=== PATIENT | female | born 1950 | race Caucasian/White ===

== ENCOUNTER 2021-04-04 11:37 | Inpatient (IN) ==
[2021-04-04] MEDS ORDERED: Acetaminophen 325 MG TABLET PO PRN (17:35)
[2021-04-04] MEDS ORDERED: *HR* Dextrose 50 % in Water (Syg) 50 ML SYRINGE IVP PRN (17:37)
[2021-04-04] MEDS ORDERED: D5% in Water 1,000 ML IVC PRN (17:37)
[2021-04-04] MEDS ORDERED: Dextrose Gel 15 GM/37.5 ML TUBE PO PRN ×2 (17:37)
[2021-04-04] MEDS: Ondansetron ODT 4 MG TAB.RAPDIS SL PRN (17:56)
[2021-04-04] MEDS: *HR* Metformin 500 MG TABLET PO SCH (20:10)
[2021-04-04] MEDS: Gabapentin 300 MG CAPSULE PO SCH (20:10)
[2021-04-04] MEDS: QUEtiapine Fumarate 25 MG TABLET PO SCH (20:11)
[2021-04-04] MEDS: Insulin DETEMIR 100 UNIT/ML X5UNITS SUBQ SCH (20:11)
[2021-04-04] MEDS ORDERED: Insulin LISPRO 300 UNITS/3 ML VIAL SUBQ SCH (21:00)
[2021-04-05] MEDS: *HR* Enoxaparin 40 MG/0.4 ML SYRINGE SQ SCH (05:50)
[2021-04-05 06:41] LABS: Basophils # 0.1 K/mcL (0.0-0.2); Basophils % 0.7 %; Eosinophils # 0.2 K/mcL (0.0-0.6); Eosinophils % 1.6 %; Hematocrit 52.1 % (35.3-44.9); Hemoglobin 16.9 g/dL (11.5-15.4); Immature Granulocytes % 0.5 % (0-4); Lymphocytes # 2.6 K/mcL (0.6-4.6); Lymphocytes % 24.1 %; Mean Corpuscular HGB Conc 32.4 g/dL (31.6-35.5); Mean Corpuscular Hemoglobin 29.8 pg (28.0-33.3); Mean Corpuscular Volume 91.7 fL (83.0-100.0); Mean Platelet Volume 11.7 fL (9.4-12.4); Monocytes # 1.9 K/mcL (0.0-1.3); Monocytes % 17.7 %; Neutrophils # 5.9 K/mcL (1.6-8.9); Platelet Count 249 K/mcL (140-400); Red Blood Count 5.68 M/mcL (3.82-4.97); Red Cell Distribution Width 14.1 % (11.5-14.5); Segmented Neutrophils % 55.4 %; White Blood Count 10.6 K/mcL (4.3-11.1)
[2021-04-05 07:05] LABS: BUN/Creatinine Ratio 16 (6-26); Blood Urea Nitrogen 17 mg/dL (8-23); Calcium 9.6 mg/dL (8.6-10.3); Carbon Dioxide 34 mEq/L (23-29); Chloride 97 mEq/L (98-107); Glucose 228 mg/dL (70-105); Osmolality,Calculated 297 (280-300); Potassium 3.7 mEq/L (3.5-5.1); Sodium 139 mEq/L (136-145); eGFR For African Americans > 60 (> 60); eGFR For Non-African Americans 52 (> 60)
[2021-04-05] MEDS: Gabapentin 300 MG CAPSULE PO SCH ×2 (10:30→20:27)
[2021-04-05] MEDS: PARoxetine 20 MG TABLET PO SCH (10:30)
[2021-04-05] MEDS: *HR* Metformin 500 MG TABLET PO SCH ×2 (10:30→20:28)
[2021-04-05] MEDS: atenoloL 50 MG TABLET PO SCH (10:30)
[2021-04-05] MEDS: lisinopriL 5 MG TABLET PO SCH (10:30)
[2021-04-05] MEDS: Aspirin Enteric Coated 81 MG Tablet PO SCH (10:30)
[2021-04-05] MEDS: Ondansetron ODT 4 MG TAB.RAPDIS SL PRN (13:22)
[2021-04-05] MEDS: Insulin LISPRO 300 UNITS/3 ML VIAL SUBQ SCH ×5 (13:23→20:43)
[2021-04-05] MEDS ORDERED: Dextrose Gel 15 GM/37.5 ML TUBE PO PRN ×2 (16:30)
[2021-04-05] MEDS ORDERED: *HR* Dextrose 50 % in Water (Syg) 50 ML SYRINGE IVP PRN (16:30)
[2021-04-05] MEDS ORDERED: D5% in Water 1,000 ML IVC PRN (16:30)
[2021-04-05] MEDS: QUEtiapine Fumarate 25 MG TABLET PO SCH (20:27)
[2021-04-05] MEDS: Insulin DETEMIR 100 UNIT/ML X5UNITS SUBQ SCH (20:43)
[2021-04-06] MEDS: *HR* Enoxaparin 40 MG/0.4 ML SYRINGE SQ SCH (06:44)
[2021-04-06] MEDS: *HR* Metformin 500 MG TABLET PO SCH ×2 (09:00→21:24)
[2021-04-06] MEDS: Gabapentin 300 MG CAPSULE PO SCH ×2 (09:00→21:24)
[2021-04-06] MEDS: lisinopriL 5 MG TABLET PO SCH (09:00)
[2021-04-06] MEDS: Aspirin Enteric Coated 81 MG Tablet PO SCH (09:00)
[2021-04-06] MEDS: atenoloL 50 MG TABLET PO SCH (09:00)
[2021-04-06] MEDS: PARoxetine 20 MG TABLET PO SCH (09:01)
[2021-04-06] MEDS: Insulin LISPRO 300 UNITS/3 ML VIAL SUBQ SCH ×4 (09:01→21:27)
[2021-04-06] MEDS: Ondansetron ODT 4 MG TAB.RAPDIS SL PRN (17:32)
[2021-04-06] MEDS: QUEtiapine Fumarate 25 MG TABLET PO SCH (21:24)
[2021-04-06] MEDS: Insulin DETEMIR 100 UNIT/ML X5UNITS SUBQ SCH (21:25)
[2021-04-07] MEDS: *HR* Enoxaparin 40 MG/0.4 ML SYRINGE SQ SCH (06:51)
[2021-04-07] MEDS: PARoxetine 20 MG TABLET PO SCH (09:03)
[2021-04-07] MEDS: Aspirin Enteric Coated 81 MG Tablet PO SCH (09:03)
[2021-04-07] MEDS: atenoloL 50 MG TABLET PO SCH (09:04)
[2021-04-07] MEDS: lisinopriL 5 MG TABLET PO SCH (09:04)
[2021-04-07] MEDS: *HR* Metformin 500 MG TABLET PO SCH ×2 (09:04→20:24)
[2021-04-07] MEDS: Gabapentin 300 MG CAPSULE PO SCH ×2 (09:05→20:23)
[2021-04-07] MEDS: Insulin LISPRO 300 UNITS/3 ML VIAL SUBQ SCH ×4 (09:05→20:26)
[2021-04-07] MEDS: QUEtiapine Fumarate 25 MG TABLET PO SCH (20:23)
[2021-04-07] MEDS: Insulin DETEMIR 100 UNIT/ML X5UNITS SUBQ SCH (20:25)
[2021-04-08] MEDS: *HR* Enoxaparin 40 MG/0.4 ML SYRINGE SQ SCH (06:42)
[2021-04-08 08:09] VITALS: BP 97/59; PULSE 59; RESP 18; TEMP 97.6; O2SAT 98
[2021-04-08] MEDS: Gabapentin 300 MG CAPSULE PO SCH (09:20)
[2021-04-08] MEDS: lisinopriL 5 MG TABLET PO SCH (09:21)
[2021-04-08] MEDS: atenoloL 50 MG TABLET PO SCH (09:21)
[2021-04-08] MEDS: PARoxetine 20 MG TABLET PO SCH (09:21)
[2021-04-08] MEDS: Aspirin Enteric Coated 81 MG Tablet PO SCH (09:22)
[2021-04-08] MEDS: *HR* Metformin 500 MG TABLET PO SCH (09:22)
[2021-04-08] MEDS: Insulin LISPRO 300 UNITS/3 ML VIAL SUBQ SCH (09:25)
[2021-04-08] MEDS: Ondansetron ODT 4 MG TAB.RAPDIS SL PRN (11:23)
== END 2021-04-08 11:25 | disposition home health service (06) | DRG 945 ==
LOC: INPPIK 17:19
PROVIDERS: ADMIT Family Medicine; ATTEND Family Medicine